=== PATIENT | female | born 1955 | race Caucasian/White ===

== ENCOUNTER 2017-07-13 11:05 | Inpatient (IN) ==
--- NOTE | 2017-07-12 21:15 | Discharge Summary ---
<Clarissa Reilly - Last Filed: 07/13/17 09:58> Date of Encounter: 07/13/17 - Discharge Diagnosis (1) Arthritis of knee, left Priority: Primary Status: Acute (2) Status post total knee replacement, left Priority: Primary Status: Acute (3) DMII (diabetes mellitus, type 2) Priority: Secondary Status: Chronic Qualifiers: Diabetes mellitus complication status: without complication Diabetes mellitus alf insulin use: unspecified alf insulin use status Qualified Code(s): E11.9 - Type 2 diabetes mellitus without complications (4) Obesity Priority: Secondary Status: Chronic Qualifiers: Obesity type: due to excess calories Obesity classification: unspecified obesity classification Serious obesity comorbidity presence: without serious comorbidity Qualified Code(s): E66.09 - Other obesity due to excess calories - Discharge Medications Home Medications: Aspirin Enteric Coated [Aspirin EC] 325 mg PO DAILY #21 tablet. 07/12/17 [Rx] OxyCODONE Immed Rel [Roxicodone 5 MG] 5 mg PO Q6HR PRN 7 Days #28 tablet [Rx] Glimepiride [Amaryl] 4 mg PO DAILY 07/13/17 [History] Insulin ASPART [Novolog Flexpen] 10 unit SQ DAILY 07/13/17 [History] Insulin Glargine,Hum.rec.anlog [Lantus Solostar] 80 unit SQ DAILY 07/13/17 [ History] Metformin HCl [Glucophage] 1,000 mg PO BID 07/13/17 [History] Oxybutynin [Ditropan] 5 mg PO BID 07/13/17 [History] Simvastatin [Zocor] 40 mg PO DAILY 07/13/17 [History] Allergies/Adverse Reactions: 3 Allergy/AdvReac Type Severity Reaction Status Date / Time No Known Allergies Allergy Verified 07/13/17 11:29 Primary care physician: Juwan Brewster MD - Patient Status Disposition: Transfer Inpatient Rehab Fac Condition: Good - Discharge Instructions Follow Up With: Juwan Brewster MD [Primary Care Provider] - Aidan Messina MD [Partnered Physician] - 08/12/17 5:05 pm Clarissa Reilly PAC [Physician Talent Management Specialist] - 07/23/17 8:45 am (Also, appointment 07/31/17 @ 9:00 AM ) - Hospital Course Hospital course: Ms. Farias is a 62 year old female - Time Spent with Patient Total time spent providing and/or coordinating discharge services: <Aidan Messina Hugo - Last Filed: 07/15/17 08:13> Date of Encounter: 07/15/17 Time of Encounter: 08:12 - Discharge Diagnosis (1) Morbid obesity with BMI of 40.0-44.9, adult Priority: Secondary Status: Chronic (2) Arthritis of knee, left Priority: Primary Status: Chronic (3) Status post total knee replacement, left Priority: Primary Status: Acute (4) DMII (diabetes mellitus, type 2) Priority: Secondary Status: Chronic Qualifiers: Diabetes mellitus complication status: without complication Diabetes mellitus alf insulin use: unspecified ocean transportation intermediary insulin use status Qualified Code(s): E11.9 - Type 2 diabetes mellitus without complications (5) Acute blood loss anemia Priority: Primary Status: Acute Primary care physician: Juwan Brewster MD - Patient Status Functional capacity at discharge: uses cane/walker Overall status at discharge: patient is progressing back to baseline - Hospital Course Hospital course: Ms. Farias is a 62 year old female Status post left total knee replacement. The patient had an uneventful postoperative course. They received antibiotics and physical therapy and were discharged in stable condition. There will follow -up in the office in 2 weeks. - Time Spent with Patient Total time spent providing and/or coordinating discharge services:
[2017-07-13] MEDS ORDERED: CeFAZolin Pre 3,000 MG/100 ML 3,000 MG/100 ML BAG IVPB ONE (11:28)
[2017-07-13] MEDS ORDERED: Lidocaine -MPF 1% 2 ML VIAL ID ONE (11:28)
[2017-07-13] MEDS ORDERED: Plasma-Lyte A (PH 7.4) 1,000 ML IVC SCH (11:30)
--- NOTE | 2017-07-13 11:48 | Anesthesia Evaluation PreOp ---
Date of Encounter: 07/13/17 Time of Encounter: 12:12 - Past History Planned Operation: Left total knee arthroplasty Cardiac History: Hyperlipidemia Pulmonary History: Denies Any Significant HX JAI ALAI PLAYER History: Denies Any Significant HX Other Medical History: Diabetes Type II (insulin dependent), Other (BMI 45) Anesthesia History: No Prior Anesthetic Complications Medications and Allergies Aspirin Enteric Coated [Aspirin EC] 325 mg PO DAILY #21 tablet.dr 07/12/17 [Rx] OxyCODONE Immed Rel [Roxicodone 5 MG] 5 mg PO Q6HR PRN 7 Days #28 tablet [Rx] Glimepiride [Amaryl] 4 mg PO DAILY 07/13/17 [History] Insulin ASPART [Novolog Flexpen] 10 unit SQ DAILY 07/13/17 [History] Insulin Glargine,Hum.rec.anlog [Lantus Solostar] 80 unit SQ DAILY 07/13/17 [ History] Metformin HCl [Glucophage] 1,000 mg PO BID 07/13/17 [History] Oxybutynin [Ditropan] 5 mg PO BID 07/13/17 [History] Simvastatin [Zocor] 40 mg PO DAILY 07/13/17 [History] 3 Allergy/AdvReac Type Severity Reaction Status Date / Time No Known Allergies Allergy Verified 07/13/17 11:29 - Meds/Allergy Pre-op Review Medications Reviewed: Yes Allergies Reviewed: Yes Beta Blockers on Current Med List: No Anesthesia Results - Labs Laboratory Tests 07/08/17 07/08/17 07/08/17 13:06 13:06 13:06 WBC 10.5 Hgb 13.6 Hct 42.8 Plt Count 289 PT 11.1 INR 1.0 APTT 36.1 H Sodium 137 Potassium 4.3 Chloride 106 Carbon Dioxide 20 BUN 18 Creatinine 1.13 H Est GFR ( Amer) 59 L Est GFR (Non-Af Amer) 49 L BUN/Creatinine Ratio 16 Est Mean Plasma Glucose Hemoglobin A1c 07/08/17 13:06 WBC Hgb Hct Plt Count PT INR APTT Sodium Potassium Chloride Carbon Dioxide BUN Creatinine Est GFR ( Amer) Est GFR (Non-Af Amer) BUN/Creatinine Ratio Est Mean Plasma Glucose 154 Hemoglobin A1c 7.0 H - Imaging EKG: report reviewed, image reviewed (SINUS RHYTHM LOW QRS VOLTAGE IN PRECORDIAL LEADS POSSIBLE ANTERIOR MYOCARDIAL INFARCTION, PROBABLY OLD) Anesthesia Exam Last Vital Signs Temp 98.1 F 07/13/17 11:35 Pulse 90 07/13/17 11:35 Resp 18 07/13/17 11:35 BP 150/91 07/13/17 11:35 Pulse Ox 96 07/13/17 11:35 Weight: 130 kg NPO (# of Hours): > 8 hrs - HEENT Pupil (Motor): Pupils equal, EOMI Mallampati: II Teeth: Normal Oral Opening: Greater than 3 - JAI ALAI PLAYER LOC: Oriented JAI ALAI PLAYER Motor: Normal RUE, Normal LUE, Normal RLE, Normal LLE, Normal Face - Cardiac Rhythm: Regular Murmur: None - Pulmonary Breath Sounds: bilateral Clear Respiratory Effort: Symmetrical Anesthesia Assess/Plan ASA Score: 3 Modified Abi Scale for Level of Consciousness: Cooperative, oriented, and tranquil Anesthetic Plan: General (patient is refusing regional at this time) Monitoring Plan: Standard Monitors Recovery Plan: PACU
--- NOTE | 2017-07-13 12:04 | History & Physical Report ---
Date of Encounter: 07/13/17 Time of Encounter: 12:03 24 Hour HP Update - Instructions Instructions: If the History and Physical is less than 30 days old and was completed prior to A.M. admission and or procedure and has NOT been updated on calendar day of procedure please complete this update prior to performing procedure. - Update Patient reports changes in Medical Condition: No Changes in examination, assessment, or condition: No Changes in Medication: No Preop tests/diagnostics Reviewed: Yes Surgery Remains Indicated: Yes Consent for Planned Operative Procedure(s) Verified: Yes - Pre-Operative Checklist Preoperative Checklist Indicated: No Prophylactic Antibiotic Ordered: Yes Is VTE Prophylaxis Indicated?: Yes
--- NOTE | 2017-07-13 12:11 | History & Physical Report ---
Date of Encounter: 07/13/17 Time of Encounter: 12:11 24 Hour HP Update - Instructions Instructions: If the History and Physical is less than 30 days old and was completed prior to A.M. admission and or procedure and has NOT been updated on calendar day of procedure please complete this update prior to performing procedure. - Update Patient reports changes in Medical Condition: No Changes in examination, assessment, or condition: No Changes in Medication: No Preop tests/diagnostics Reviewed: Yes Surgery Remains Indicated: Yes Consent for Planned Operative Procedure(s) Verified: Yes - Pre-Operative Checklist Preoperative Checklist Indicated: No Prophylactic Antibiotic Ordered: Yes Is VTE Prophylaxis Indicated?: Yes
[2017-07-13] MEDS ORDERED: *HR* FentaNYL (PF) 100 MCG/2 ML VIAL ONE (12:31)
[2017-07-13] MEDS ORDERED: *HR* Propofol 200 MG/20 ML VIAL IVP ONE (12:32)
[2017-07-13] MEDS ORDERED: Ketamine *HR* 500 MG/10 ML MDV ONE (12:32)
[2017-07-13] MEDS ORDERED: *HR* Midazolam HCl 2 MG/2 ML VIAL ONE (12:32)
[2017-07-13] MEDS ORDERED: Lidocaine -MPF 2% 2 ML VIAL ONE ×2 (12:34→14:13)
[2017-07-13] MEDS ORDERED: Ethanol\\Acetic Acid\\Na Ace\\Ben 1,000 ML IRRIG.SOLN IR ONE (13:52)
[2017-07-13] MEDS ORDERED: Dexamethasone 4 MG/ML VIAL ONE (14:06)
[2017-07-13] MEDS ORDERED: Ondansetron 4 MG/2 ML VIAL ONE (14:06)
[2017-07-13] MEDS ORDERED: Ketorolac 30 MG/ML VIAL ONE (14:07)
[2017-07-13] MEDS ORDERED: *HR* Magnesium Sulfate 1 GM/2 ML VIAL ONE (14:08)
[2017-07-13] MEDS ORDERED: Acetaminophen IV 1,000 MG/100 ML INFUS..BTL ONE (14:09)
[2017-07-13] MEDS ORDERED: *HR* HYDROmorphone 2 MG/ML SYRINGE ONE (14:16)
[2017-07-13] MEDS ORDERED: *HR* Labetalol 20 MG/4 ML SYRINGE IVP PRN (14:25)
[2017-07-13] MEDS ORDERED: Ondansetron 4 MG/2 ML VIAL IVP PRN (14:25)
[2017-07-13] MEDS ORDERED: *HR* HYDROmorphone (PF) 1 MG/ML SYRINGE IVP PRN (14:25)
--- NOTE | 2017-07-13 14:50 | Orthopedic Operative Note ---
Date of procedure: 07/13/17 Pre-op diagnosis: Left knee arthritis Post-op diagnosis: same Procedure: Procedure: Left Total knee replacement Estimated blood loss: 200 cc Hardware: Metal and polyethylene replacement. Arthrex Femur: 6 Tibia: 5 PS insert: 20 Patella: 40 Exam Under anesthesia: Loss full tension 15 degrees flexion to 95 degrees Procedural Notes: Grade 4 arthritic changes all 3 compartments. Operative procedure: The patient was brought to the operating room and placed on the operating room table. After general anesthesia was administered the operative knee was examined. Findings were noted in the exam under anesthesia. The operative extremity was prepped and draped in sterile surgical fashion. The patient received IV antibiotics prior to skin incision. A standard midline incision was made centered over the patella. The incision was made through the skin and subcutaneous tissue. A medial parapatellar tendon approach was performed. Care was taken to preserve tissue along the medial aspect of the patella. And to protect the patella tendon. The deep MCL was released off the medial tibia. The infra patella fat pad was excised. Knee was brought into flexion. Patient noted to have grade 4 arthritic changes all 3 compartments. The entry hole was made for the intramedullary femoral guide. The guide was seated in 6 degrees of valgus. Anterior cut was made followed by the distal cut. The ACL the PCL the medial and the lateral menisci were excised. The tibia was subluxed forward. The entry hole was made for the intramedullary tibial guide. Guide was seated to resect 2 mm off the more abnormal side. The knee was brought into flexion the distal femur was sized to a 6. The femoral guide was seated, the anterior cut was made followed by the posterior condylar cut, followed by the chamfer cuts. The finishing guide was seated the box cut was made and the lug holes were drilled. The tibia was sized a 5, the tibial tray was seated and prepared with the large drill followed by the fin cutter. Trial reduction revealed full extension no varus valgus instability with the appropriate 20 PS Anais. The patella was everted and cut was made at the level of the insertion of the quadriceps and patella tendon. The patella was sized to a 40 the guide was seated and the lug holes are drilled. Trial reduction revealed excellent patella tracking. All trial components were removed all bony surfaces were irrigated. The tibia was cemented first followed by the femur. The 20 PS Anais was seated and the knee was brought into full extension. The patella was cemented and held in place with the patellar holding clamp. After the cement had hardened, the knee sat for 2 minutes with a Betadine saline solution. The knee was then irrigated out with 2 L of pulse irrigation. The knee was closed by the PA. The extensor mechanism was closed with #2 FiberWire suture and #2 PDS suture. The subcutaneous tissue was then irrigated and closed deep with #1 PDS suture superficially with 0 PDS suture and skin was closed with skin alfred. The patient was then placed in a sterile dressing and a postoperative brace extubated and transferred to recovery room in stable condition. Anesthesia: GETA Surgeon: Aidan Messina Condition: stable Disposition: PACU
--- NOTE | 2017-07-13 15:54 | Anesthesia Evaluation Post Op ---
Date of Encounter: 07/13/17 Time of Encounter: 15:54 - Vital Signs Vital Signs: Last Vital Signs Temp 97.0 F L 07/13/17 15:29 Pulse 74 07/13/17 15:39 Resp 18 07/13/17 15:39 BP 120/68 07/13/17 15:39 Pulse Ox 93 07/13/17 15:39 - Lungs Lungs: Clear Ascult./Percussion - Airway Airway: Non-obstructed - Cardiovascular Regular Rate - Mental Status Mental Status: Alert & Oriented, Answers Appropriately - Pain Pain Scale: 4 - Nausea Vomiting Nausea Vomiting: Not Present - Hydration Hydration: NPO - Discharge PostOp Status: Transfer Patient to floor
[2017-07-13] MEDS ORDERED: D5% in Water 1,000 ML IVC PRN (16:04)
[2017-07-13] MEDS ORDERED: Temazepam 15 MG CAPSULE PO PRN (16:04)
[2017-07-13] MEDS ORDERED: Naloxone 0.4 MG/ML INJ IVP PRN (16:04)
[2017-07-13] MEDS ORDERED: *HR* OxyCODONE Immed Rel 5 MG TABLET PO PRN (16:04)
[2017-07-13] MEDS ORDERED: Sennosides 8.6 MG TABLET PO PRN (16:04)
[2017-07-13] MEDS ORDERED: *HR* Dextrose 50 % in Water (Syg) 50 ML SYRINGE IVP PRN (16:04)
[2017-07-13] MEDS ORDERED: ceFAZolin 3,000 MG in D5% in Water 100 ML IVPB SCH (16:04)
[2017-07-13] MEDS ORDERED: MOM Conc 10 ML UD.LIQ PO PRN (16:04)
[2017-07-13] MEDS ORDERED: Dextrose Gel 15 GM PO PRN ×2 (16:04)
[2017-07-13] MEDS ORDERED: Ringers Solution, Lactated 1,000 ML IVC SCH (16:04)
--- NOTE | 2017-07-13 16:14 | Physician Discharge Referral ---
ExtendedCare Referral Info Transfer To: [facility] Provider in Charge: Provider in Charge after Transfer: PCP Institutional Level of Care: Skilled - Diagnosis (1) Arthritis of knee, left Priority: Primary Status: Chronic (2) Status post total knee replacement, left Priority: Primary Status: Acute (3) DMII (diabetes mellitus, type 2) Priority: Secondary Status: Chronic (4) Obesity Priority: Secondary Status: Chronic Expected Duration of Placement: < 30 days Prognosis: Good Aware of Diagnosis: Patient Aware of Prognosis: Patient - Transfer Medications Home Medications: Aspirin Enteric Coated [Aspirin EC] 325 mg PO DAILY #21 tablet.dr 07/12/17 [Rx] OxyCODONE Immed Rel [Roxicodone 5 MG] 5 mg PO Q6HR PRN 7 Days #28 tablet [Rx] Glimepiride [Amaryl] 4 mg PO DAILY 07/13/17 [History] Insulin ASPART [Novolog Flexpen] 10 unit SQ DAILY 07/13/17 [History] Insulin Glargine,Hum.rec.anlog [Lantus Solostar] 80 unit SQ DAILY 07/13/17 [ History] Metformin HCl [Glucophage] 1,000 mg PO BID 07/13/17 [History] Oxybutynin [Ditropan] 5 mg PO BID 07/13/17 [History] Simvastatin [Zocor] 40 mg PO DAILY 07/13/17 [History] Allergies/Adverse Reactions: 3 Allergy/AdvReac Type Severity Reaction Status Date / Time No Known Allergies Allergy Verified 07/13/17 11:29 - Respiratory Orders None Smoking Cessation: Smoking cessation has been advised. For more information, call the [place] Tobacco Quit Line at 1-195-QIBZ-NOW. - Ancillary Orders May use pressure relief devices daily prn, May go on RANI w/family/respon democrat w /meds at nurse discretion PRN, May consult with Dentist, Radiographer Mammographer, Advisor Advocate Angel Co Founder PRN - Mobility Orders Chair, Ambulate - Rehabiliation Orders Rehab Potential: Good Rehab Orders: ROM Exercises, Evaluation for Physical Therapy, Evaluation for Occupational Therapy Other: PT/OT. WBAT to affected extremity. Follow Total Knee Precautions x 6 weeks. Stay in brace at night only. Plan to discontinue brace after first post- operative appointment. ICE and elevate extremity frequently throughout the day. Encourage ambulation exercises. - Treatments Skin tear care topically daily PRN per policy List/Other: Opsite placed. Keep dressing intact until first follow up appointment. If > 50% saturated,notify offfice, remove dressing and place appropriate dressing back in place. Dressing is water resistant, not water-proof. OK to shower, but do not get dressing wet. Riley in place, to be removed at POD#14-16. CERTIFICATION: I certify that the transfer of the above named patient to an Extended Care Facility is necessary for the continuing treatment of the diagnosis listed. The above information is true and accurate reflection of patient's current condition. Confidential - Redisclosure prohibited without a patient's written consent.
[2017-07-13 16:28] LABS: Hematocrit 37.4 % (35.3-44.9)
[2017-07-13 16:29] LABS: Hemoglobin 11.8 g/dL (11.5-15.4)
[2017-07-13] MEDS: Insulin LISPRO 300 UNITS/3 ML VIAL SQ SCH ×2 (16:33→20:48)
[2017-07-13] MEDS: *HR* Enoxaparin 30 MG/0.3 ML SYRINGE SQ SCH (17:30)
[2017-07-13] MEDS: Ondansetron 4 MG/2 ML VIAL IVP PRN (17:31)
[2017-07-13] MEDS ORDERED: Acetaminophen IV 1,000 MG/100 ML INFUS..BTL IVPB PRN (17:36)
[2017-07-13] MEDS ORDERED: *HR* Enoxaparin 30 MG/0.3 ML SYRINGE SQ SCH (18:00)
[2017-07-13] MEDS: *HR* Metformin 500 MG TABLET PO SCH (20:48)
[2017-07-14] MEDS: ceFAZolin 3,000 MG in D5% in Water 100 ML IVPB SCH ×2 (00:02→07:50)
[2017-07-14] MEDS: *HR* OxyCODONE Immed Rel 5 MG TABLET PO PRN ×5 (03:33→21:46)
[2017-07-14] MEDS: *HR* Enoxaparin 30 MG/0.3 ML SYRINGE SQ SCH ×2 (05:35→17:28)
[2017-07-14] MEDS: *HR* HYDROmorphone (PF) 1 MG/ML SYRINGE IVP PRN ×2 (05:55→08:46)
--- NOTE | 2017-07-14 06:37 | Orthopedics Progress Note ---
Date of Encounter: 07/14/17 Time of Encounter: 06:37 - Assessment and Plan (1) Morbid obesity with BMI of 40.0-44.9, adult Current Visit: Yes Status: Chronic (2) Arthritis of knee, left Current Visit: No Status: Chronic (3) Status post total knee replacement, left Current Visit: No Status: Acute (4) DMII (diabetes mellitus, type 2) Current Visit: No Status: Chronic Qualifiers: Diabetes mellitus complication status: without complication Diabetes mellitus ocean transportation intermediary insulin use: unspecified ocean transportation intermediary insulin use status Qualified Code(s): E11.9 - Type 2 diabetes mellitus without complications Subjective Interval history: Patient was seen this morning doing well without complaints. Afebrile vital signs stable. Operative extremity: Neurovascularly intact Dressing clean dry and intact Calves nontender Assessment and plan: Continue with postoperative care Hematocrit 37 Objective Vital signs: Vital Signs Temp Pulse Resp BP Pulse Ox 07/14/17 03:54 97.6 F 89 16 130/81 99 07/13/17 23:07 97.5 F L 98 16 139/83 100 07/13/17 19:25 97.7 F 78 18 131/69 99 07/13/17 18:57 97.8 F 74 16 139/81 96 07/13/17 18:47 98.1 F 80 15 132/78 100 07/13/17 18:09 98.0 F 73 16 146/78 96 07/13/17 17:21 97.7 F 80 18 136/83 97 07/13/17 16:45 98.3 F 79 20 131/74 95 07/13/17 16:10 97.7 F 73 22 137/82 90 07/13/17 16:06 91 07/13/17 15:59 98.2 F 83 17 125/68 93 07/13/17 15:49 75 15 120/70 94 07/13/17 15:39 74 18 120/68 93 07/13/17 15:29 97.0 F L 72 16 113/48 96 07/13/17 11:35 98.1 F 90 18 150/91 96 Intake and Output 07/13/17 07/13/17 07/14/17 15:59 23:59 07:59 Intake Total 100 / 100 900 / 900 100 / 100 Output Total 200 / 200 0 / 0 600 / 600 Balance -100 / -100 900 / 900 -500 / -500 Intake: IV Fluids 100 / 100 100 / 100 Ancef Premix 3,000 MG/100 ML 3, 100 / 100 000 mg In 100 ml @ 200 mls/hr IVPB PREOP ONE Rx#:[id number] Ancef 3,000 MG In Dextrose 5% 100 / 100 100 ML @ 200 mls/hr IVPB Q8HR SMITH Rx#:[id number] Oral 900 / 900 Output: Urine 0 / 0 600 / 600 Estimated Blood Loss 200 / 200 Other: Weight 129.727 kg 130.7 kg Blood Glucose* 119 271 Patient Weight 07/14/17 23:59 Weight 130.7 kg - Labs CBC & BMP: 07/13/17 15:39 Labs: Abnormal lab results POC Glucose 271 (58-89) H 07/13/17 20:19 - VTE Documentation of Mechanical Device: Venous foot pump, device Consult Discharge Plan - Plan Referrals: Juwan Brewster MD [Primary Care Provider] - Aidan Messina MD [Partnered Physician] - 08/12/17 5:05 pm Clarissa Reilly PAC [Physician Multimedia Developer] - 07/23/17 8:45 am (Also, appointment 07/31/17 @ 9:00 AM )
[2017-07-14 07:02] LABS: Hematocrit 32.9 % (35.3-44.9); Hemoglobin 10.7 g/dL (11.5-15.4)
[2017-07-14 07:19] LABS: Calcium 8.8 mg/dL (8.6-10.8); Potassium 5.4 mEq/L (3.5-4.5)
[2017-07-14] MEDS: *HR* Metformin 500 MG TABLET PO SCH ×2 (07:41→21:40)
[2017-07-14] MEDS: *HR* Glimepiride 4 MG TABLET PO SCH (07:41)
[2017-07-14] MEDS: Insulin LISPRO 300 UNITS/3 ML VIAL SQ SCH ×5 (07:42→21:41)
[2017-07-14] MEDS: Insulin DETEMIR 100 UNIT/ML X5UNITS SQ SCH (09:03)
[2017-07-14] MEDS: Ondansetron 4 MG/2 ML VIAL IVP PRN (09:14)
[2017-07-15] MEDS: *HR* Enoxaparin 30 MG/0.3 ML SYRINGE SQ SCH (06:24)
[2017-07-15 07:27] VITALS: BP 140/76
[2017-07-15 07:29] LABS: Hematocrit 30.3 % (35.3-44.9); Hemoglobin 9.6 g/dL (11.5-15.4)
[2017-07-15] MEDS: Insulin LISPRO 300 UNITS/3 ML VIAL SQ SCH ×2 (08:13)
[2017-07-15] MEDS: Insulin DETEMIR 100 UNIT/ML X5UNITS SQ SCH (08:13)
[2017-07-15] MEDS: *HR* OxyCODONE Immed Rel 5 MG TABLET PO PRN (08:14)
[2017-07-15] MEDS: *HR* Metformin 500 MG TABLET PO SCH (08:14)
[2017-07-15] MEDS: *HR* Glimepiride 4 MG TABLET PO SCH (08:14)
--- NOTE | 2017-07-15 08:14 | Orthopedics Progress Note ---
Date of Encounter: 07/15/17 Time of Encounter: 08:13 - Assessment and Plan (1) Morbid obesity with BMI of 40.0-44.9, adult Current Visit: Yes Status: Chronic (2) Arthritis of knee, left Current Visit: No Status: Chronic (3) Status post total knee replacement, left Current Visit: No Status: Acute (4) DMII (diabetes mellitus, type 2) Current Visit: No Status: Chronic Qualifiers: Diabetes mellitus complication status: without complication Diabetes mellitus director long term care insulin use: unspecified director long term care insulin use status Qualified Code(s): E11.9 - Type 2 diabetes mellitus without complications (5) Acute blood loss anemia Current Visit: Yes Status: Acute Subjective Interval history: Patient was seen this morning doing well without complaints. Afebrile vital signs stable. Operative extremity: Neurovascularly intact Dressing clean dry and intact Calves nontender Assessment and plan: Continue with postoperative care Hematocrit 30 discharged today Objective Vital signs: Vital Signs Temp Pulse Resp BP Pulse Ox 07/15/17 07:24 98.0 F 89 15 140/76 98 07/15/17 04:03 98.0 F 62 18 131/77 96 07/14/17 23:51 98.6 F 94 18 121/80 100 07/14/17 19:10 98.4 F 101 18 133/80 93 07/14/17 15:13 97.5 F L 88 15 152/76 94 07/14/17 11:21 97.9 F 79 15 124/71 96 07/14/17 08:45 84 17 160/83 Intake and Output 07/14/17 07/15/17 07/15/17 23:59 07:59 15:59 Output Total 100 / 100 350 / 350 Balance -100 / -100 -350 / -350 Output: Urine 100 / 100 350 / 350 Other: # Voids 1 Weight 129.8 kg Blood Glucose* 205 228 Patient Weight 07/15/17 23:59 Weight 129.8 kg - Labs CBC & BMP: 07/15/17 06:59 07/15/17 06:59 Labs: Abnormal lab results Hgb 9.6 g/dL (11.5-15.4) L 07/15/17 06:59 Hct 30.3 % (35.3-44.9) L 07/15/17 06:59 Sodium 128 mEq/L (136-145) L 07/15/17 06:59 Potassium 5.0 mEq/L (3.5-4.5) H 07/15/17 06:59 BUN 35 mg/dL (7-20) H 07/15/17 06:59 Creatinine 1.45 mg/dL (0.57-1.11) H 07/15/17 06:59 Est GFR ( Amer) 44 (> 60) L 07/15/17 06:59 Est GFR (Non-Af Amer) 37 (> 60) L 07/15/17 06:59 Glucose 205 mg/dL (70-99) H 07/15/17 06:59 POC Glucose 228 (58-89) H 07/15/17 07:26 - VTE Documentation of Mechanical Device: Venous foot pump, device Consult Discharge Plan - Plan Referrals: Juawn Brewster MD [Primary Care Provider] - Aidan Messina MD [Partnered Physician] - 08/12/17 5:05 pm Clarissa Reilly, PAC [Physician Health Club Manager] - 07/23/17 8:45 am (Also, appointment 07/31/17 @ 9:00 AM )
== END 2017-07-15 11:04 | DRG 470 ==
LOC: SAMDAY 11:05 → 3NENU 16:05
PROVIDERS: ADMIT Orthopaedic Surgery; ATTEND Orthopaedic Surgery

== ENCOUNTER 2021-03-02 22:01 | Inpatient (IN) ==
[2021-03-03] MEDS ORDERED: Naloxone 0.4 MG/ML INJ IVP PRN (06:01)
[2021-03-03] MEDS ORDERED: Ondansetron 4 MG/2 ML VIAL IVP PRN (06:01)
[2021-03-03] MEDS ORDERED: Ketorolac 15 MG/ML VIAL IVP PRN (06:01)
[2021-03-03] MEDS ORDERED: D5% in Water 1,000 ML IVC PRN (06:18)
[2021-03-03] MEDS ORDERED: *HR* Dextrose 50 % in Water (Vial) 50 ML VIAL IVP PRN (06:18)
[2021-03-03] MEDS ORDERED: Dextrose Gel 15 GM/37.5 ML TUBE PO PRN ×2 (06:18)
[2021-03-03 06:49] LABS: Basophils % 0.2 %; Hemoglobin 11.2 g/dL (11.5-15.4); Immature Granulocytes % 0.5 % (0-4); Lymphocytes # 0.8 K/mcL (0.6-4.6); Lymphocytes % 4.5 %; Mean Corpuscular HGB Conc 31.1 g/dL (31.6-35.5); Mean Corpuscular Hemoglobin 28.1 pg (28.0-33.3); Mean Corpuscular Volume 90.5 fL (83.0-100.0); Mean Platelet Volume 10.1 fL (9.4-12.4); Monocytes # 0.7 K/mcL (0.0-1.3); Monocytes % 4.1 %; Platelet Count 249 K/mcL (140-400); Red Blood Count 3.98 M/mcL (3.82-4.97); Red Cell Distribution Width 14.4 % (11.5-14.5); Segmented Neutrophils % 90.7 %; White Blood Count 17.6 K/mcL (4.3-11.1)
[2021-03-03 06:56] LABS: INR 1.1
[2021-03-03 07:09] LABS: BUN/Creatinine Ratio 17 (6-26); Blood Urea Nitrogen 18 mg/dL (8-23); Calcium 9.1 mg/dL (8.6-10.3); Carbon Dioxide 21 mEq/L (23-29); Chloride 100 mEq/L (98-107); Creatine Kinase 60 Units/L (30-223); Glucose 400 mg/dL (70-105); Osmolality,Calculated 289 (280-300); Potassium 4.7 mEq/L (3.5-5.1); Sodium 130 mEq/L (136-145); eGFR For African Americans > 60 (> 60); eGFR For Non-African Americans 52 (> 60)
[2021-03-03] MEDS: Insulin DETEMIR 100 UNIT/ML X5UNITS SUBQ SCH ×2 (10:37→19:41)
[2021-03-03] MEDS ORDERED: cefTRIAXone 1,000 MG in 0.9 % Sodium Chloride Mini Bag 100 ML IVPB ONE (11:57)
[2021-03-03] MEDS ORDERED: Insulin LISPRO 300 UNITS/3 ML VIAL SUBQ SCH ×2 (12:00)
[2021-03-03] MEDS: Insulin LISPRO 300 UNITS/3 ML VIAL SUBQ SCH (17:06)
[2021-03-03] MEDS: Nystatin POWDER 30 GM BOTTLE TP SCH (21:40)
[2021-03-03 22:18] LABS: Influenza A PCR Negative (Negative); Influenza B PCR Negative (Negative); Resp. Syncytial Virus PCR Negative (Negative)
[2021-03-03 22:20] LABS: SARS-CoV-2 by PCR (In House) Negative (Negative)
[2021-03-04 00:10] LABS: Bilirubin,Urine Negative (Negative); Blood,Urine Moderate (Negative); Clarity,Urine Ex.Turbid (Clear); Color,Urine Yellow (Yellow); Glucose,Urine (UA) 70 mg/dL (Normal); Hyaline Casts,Urine Few per lpf (None Seen); Ketones,Urine Trace mg/dL (Negative); Leukocyte Esterase,Urine Small (Negative); Mucus,Urine Moderate per lpf (None-Few); Nitrite,Urine Negative (Negative); PH,Urine 5.5 pH Units (5.0-8.0); Protein,Urine 100 mg/dL (Neg-Trace); RBC,Urine 50-100 per hpf (0-3); Specific Gravity,Urine > 1.030 (1.010-1.025); Squamous Epithelial Cell,Urine Few per hpf (None-Few); Urobilinogen,Urine Normal (Normal); WBC,Urine 30-50 per hpf (0-3)
[2021-03-04 05:28] LABS: Basophils % 0.4 %; Eosinophils # 0.1 K/mcL (0.0-0.6); Eosinophils % 0.5 %; Hematocrit 31.3 % (35.3-44.9); Immature Granulocytes % 0.5 % (0-4); Lymphocytes # 2.1 K/mcL (0.6-4.6); Lymphocytes % 19.3 %; Mean Corpuscular HGB Conc 31.9 g/dL (31.6-35.5); Mean Corpuscular Hemoglobin 28.9 pg (28.0-33.3); Mean Corpuscular Volume 90.5 fL (83.0-100.0); Mean Platelet Volume 10.3 fL (9.4-12.4); Monocytes # 1.1 K/mcL (0.0-1.3); Monocytes % 10.5 %; Neutrophils # 7.5 K/mcL (1.6-8.9); Platelet Count 210 K/mcL (140-400); Red Blood Count 3.46 M/mcL (3.82-4.97); Red Cell Distribution Width 14.9 % (11.5-14.5); Segmented Neutrophils % 68.8 %; White Blood Count 10.9 K/mcL (4.3-11.1)
[2021-03-04 05:56] LABS: Calcium 8.9 mg/dL (8.6-10.3); Potassium 4.4 mEq/L (3.5-5.1)
[2021-03-04] MEDS: Insulin LISPRO 300 UNITS/3 ML VIAL SUBQ SCH ×5 (08:44→16:16)
[2021-03-04] MEDS: Insulin DETEMIR 100 UNIT/ML X5UNITS SUBQ SCH ×2 (08:59→20:31)
[2021-03-04] MEDS: Nystatin POWDER 30 GM BOTTLE TP SCH ×2 (09:00→20:31)
[2021-03-04] MEDS ORDERED: Ringers Solution, Lactated 1,000 ML IVC SCH (10:45)
[2021-03-04] MEDS: *HR* Enoxaparin 40 MG/0.4 ML SYRINGE SQ SCH (10:56)
[2021-03-04] MEDS: cefTRIAXone 1,000 MG in Water for inj. (sterile) 10 ML IVP SCH (10:56)
[2021-03-04] MEDS ORDERED: Clindamycin 900 MG/50 ML 900 MG/50 ML IV.SOLN IVPB ONE (13:21)
[2021-03-05] MEDS: *HR* Enoxaparin 40 MG/0.4 ML SYRINGE SQ SCH (04:33)
[2021-03-05 05:05] LABS: Basophils # 0.1 K/mcL (0.0-0.2); Basophils % 0.7 %; Eosinophils # 0.1 K/mcL (0.0-0.6); Eosinophils % 0.9 %; Hematocrit 28.5 % (35.3-44.9); Immature Granulocytes % 0.5 % (0-4); Lymphocytes # 1.9 K/mcL (0.6-4.6); Lymphocytes % 17.4 %; Mean Corpuscular HGB Conc 31.6 g/dL (31.6-35.5); Mean Corpuscular Hemoglobin 28.5 pg (28.0-33.3); Mean Corpuscular Volume 90.2 fL (83.0-100.0); Mean Platelet Volume 10.3 fL (9.4-12.4); Monocytes # 1.2 K/mcL (0.0-1.3); Monocytes % 10.9 %; Neutrophils # 7.7 K/mcL (1.6-8.9); Platelet Count 194 K/mcL (140-400); Red Blood Count 3.16 M/mcL (3.82-4.97); Red Cell Distribution Width 14.6 % (11.5-14.5); Segmented Neutrophils % 69.6 %; White Blood Count 11.1 K/mcL (4.3-11.1)
[2021-03-05 05:22] LABS: BUN/Creatinine Ratio 23 (6-26); Blood Urea Nitrogen 23 mg/dL (8-23); Calcium 8.7 mg/dL (8.6-10.3); Carbon Dioxide 25 mEq/L (23-29); Chloride 101 mEq/L (98-107); Glucose 187 mg/dL (70-105); Osmolality,Calculated 283 (280-300); Potassium 4.2 mEq/L (3.5-5.1); Sodium 132 mEq/L (136-145); eGFR For African Americans > 60 (> 60); eGFR For Non-African Americans 56 (> 60)
[2021-03-05 05:46] LABS: Estimated Average Glucose 166 mg/dl; Hemoglobin A1C 7.4 %
[2021-03-05] MEDS: Insulin LISPRO 300 UNITS/3 ML VIAL SUBQ SCH ×6 (08:13→19:23)
[2021-03-05] MEDS: Aspirin Enteric Coated 81 MG Tablet PO SCH (08:22)
[2021-03-05] MEDS: cefTRIAXone 1,000 MG in Water for inj. (sterile) 10 ML IVP SCH (08:30)
[2021-03-05] MEDS: Insulin DETEMIR 100 UNIT/ML X5UNITS SUBQ SCH ×2 (08:30→22:02)
[2021-03-05] MEDS: Nystatin POWDER 30 GM BOTTLE TP SCH ×2 (08:32→22:02)
[2021-03-05] MEDS ORDERED: *HR* Enoxaparin 40 MG/0.4 ML SYRINGE SQ SCH (10:42)
[2021-03-05] MEDS ORDERED: Ropivacaine/PF 0.5% 30 ML VIAL ONE (15:59)
[2021-03-05] MEDS ORDERED: *HR* Midazolam HCl 2 MG/2 ML VIAL ONE (16:00)
[2021-03-05] MEDS ORDERED: *HR* FentaNYL (PF) 100 MCG/2 ML VIAL ONE (16:00)
[2021-03-05] MEDS ORDERED: *HR* Propofol 200 MG/20 ML VIAL IVP ONE (16:01)
[2021-03-05] MEDS ORDERED: *HR* Succinylcholine 200 MG/10 ML VIAL IVP ONE (16:03)
[2021-03-05] MEDS ORDERED: Lidocaine -MPF 2% 2 ML VIAL ONE ×2 (16:03→16:21)
[2021-03-05] MEDS ORDERED: Clindamycin 900 MG/50 ML 900 MG/50 ML IV.SOLN IVPB ONE ×2 (17:11→22:00)
[2021-03-05] MEDS ORDERED: *HR* Rocuronium Bromide 50 MG/5 ML VIAL ONE (17:22)
[2021-03-05] MEDS ORDERED: Ondansetron 4 MG/2 ML VIAL ONE (17:51)
[2021-03-05] MEDS ORDERED: *HR* Phenylephrine 10 MG/ML VIAL ONE (18:06)
[2021-03-05] MEDS ORDERED: Neostigmine Methylsulfate 3 MG/3 ML SYRINGE ONE (19:47)
[2021-03-05] MEDS ORDERED: *HR* HYDROMORPHONE 2 MG/ML VIAL ONE (19:58)
[2021-03-05] MEDS ORDERED: Ondansetron 4 MG/2 ML VIAL IVP PRN ×2 (20:10→20:12)
[2021-03-05] MEDS ORDERED: *HR* HYDROmorphone PF 0.5 MG/0.5 ML SYRINGE IVP PRN (20:10)
[2021-03-05] MEDS ORDERED: *HR* OxyCODONE Immed Rel 5 MG TABLET PO PRN (20:12)
[2021-03-05] MEDS ORDERED: 0.9 % Sodium Chloride 1,000 ML IVC SCH (20:15)
[2021-03-05 22:37] LABS: ABG Base Excess 1 mEq/L (-2 to 3); ABG HCO3 27 mEq/L (21-27); ABG Oxygen Saturation 91 % (95-98); ABG PCO2 48 mmHg (35-45); ABG PH 7.35 pH Units (7.32-7.45); ABG PO2 65 mmHg (85-104); ABG TCO2 28 mEq/L (20-26)
[2021-03-06] MEDS: Clindamycin 900 MG/50 ML 900 MG/50 ML IV.SOLN IVPB SCH ×2 (02:09→08:49)
[2021-03-06 02:47] LABS: BUN/Creatinine Ratio 21 (6-26); Blood Urea Nitrogen 22 mg/dL (8-23); Calcium 8.4 mg/dL (8.6-10.3); Carbon Dioxide 24 mEq/L (23-29); Chloride 101 mEq/L (98-107); Glucose 329 mg/dL (70-105); Osmolality,Calculated 290 (280-300); Sodium 132 mEq/L (136-145); eGFR For African Americans > 60 (> 60); eGFR For Non-African Americans 54 (> 60)
[2021-03-06 02:57] LABS: Basophils % 0.2 %; Hematocrit 27.8 % (35.3-44.9); Hemoglobin 8.9 g/dL (11.5-15.4); Immature Granulocytes % 0.8 % (0-4); Lymphocytes # 0.6 K/mcL (0.6-4.6); Lymphocytes % 5.2 %; Mean Corpuscular Hemoglobin 29.2 pg (28.0-33.3); Mean Corpuscular Volume 91.1 fL (83.0-100.0); Mean Platelet Volume 10.5 fL (9.4-12.4); Monocytes # 0.5 K/mcL (0.0-1.3); Monocytes % 4.2 %; Neutrophils # 10.5 K/mcL (1.6-8.9); Platelet Count 192 K/mcL (140-400); Red Blood Count 3.05 M/mcL (3.82-4.97); Red Cell Distribution Width 14.6 % (11.5-14.5); Segmented Neutrophils % 89.6 %; White Blood Count 11.7 K/mcL (4.3-11.1)
[2021-03-06] MEDS: *HR* Enoxaparin 30 MG/0.3 ML SYRINGE SQ SCH ×2 (05:07→18:29)
[2021-03-06] MEDS: Aspirin Enteric Coated 81 MG Tablet PO SCH (08:48)
[2021-03-06] MEDS: cefTRIAXone 1,000 MG in Water for inj. (sterile) 10 ML IVP SCH (08:49)
[2021-03-06] MEDS: Insulin DETEMIR 100 UNIT/ML X5UNITS SUBQ SCH ×2 (08:50→20:24)
[2021-03-06] MEDS: Insulin LISPRO 300 UNITS/3 ML VIAL SUBQ SCH ×6 (08:51→17:58)
[2021-03-06] MEDS ORDERED: Perflutren Lipid Microsphere 1.3 ML in 0.9 % Sodium Chloride 8.7 ML IVP PRN (13:54)
[2021-03-06] MEDS: Nystatin POWDER 30 GM BOTTLE TP SCH (22:51)
[2021-03-07 01:31] LABS: Basophils % 0.1 %; Eosinophils % 0.1 %; Hematocrit 25.7 % (35.3-44.9); Hemoglobin 8.1 g/dL (11.5-15.4); Immature Granulocytes % 0.7 % (0-4); Lymphocytes # 1.8 K/mcL (0.6-4.6); Lymphocytes % 13.1 %; Mean Corpuscular HGB Conc 31.5 g/dL (31.6-35.5); Mean Corpuscular Hemoglobin 28.1 pg (28.0-33.3); Mean Corpuscular Volume 89.2 fL (83.0-100.0); Mean Platelet Volume 10.3 fL (9.4-12.4); Monocytes # 1.6 K/mcL (0.0-1.3); Monocytes % 11.3 %; Neutrophils # 10.5 K/mcL (1.6-8.9); Platelet Count 239 K/mcL (140-400); Red Blood Count 2.88 M/mcL (3.82-4.97); Red Cell Distribution Width 14.5 % (11.5-14.5); Segmented Neutrophils % 74.7 %
[2021-03-07 01:53] LABS: BUN/Creatinine Ratio 28 (6-26); Blood Urea Nitrogen 30 mg/dL (8-23); Calcium 8.3 mg/dL (8.6-10.3); Carbon Dioxide 26 mEq/L (23-29); Chloride 102 mEq/L (98-107); Glucose 163 mg/dL (70-105); Osmolality,Calculated 288 (280-300); Potassium 3.7 mEq/L (3.5-5.1); Sodium 134 mEq/L (136-145); eGFR For African Americans > 60 (> 60); eGFR For Non-African Americans 52 (> 60)
[2021-03-07] MEDS: *HR* Enoxaparin 30 MG/0.3 ML SYRINGE SQ SCH (05:59)
[2021-03-07] MEDS: cefTRIAXone 1,000 MG in Water for inj. (sterile) 10 ML IVP SCH (09:51)
[2021-03-07] MEDS: Aspirin Enteric Coated 81 MG Tablet PO SCH (09:52)
[2021-03-07] MEDS: Insulin DETEMIR 100 UNIT/ML X5UNITS SUBQ SCH (09:53)
[2021-03-07] MEDS: Insulin LISPRO 300 UNITS/3 ML VIAL SUBQ SCH ×6 (09:54→19:44)
[2021-03-07] MEDS ORDERED: Isovue-370 500 ML BOTTLE IVP ONE (12:00)
[2021-03-07] MEDS ORDERED: *HR* Heparin 5,000 UNIT/ML VIAL IVP PRN ×2 (14:40)
[2021-03-07] MEDS ORDERED: *HR* Heparin 5,000 UNIT/ML VIAL IVP ONE (14:40)
[2021-03-07] MEDS ORDERED: Heparin 25,000UNIT/250ML 1/2NS 25,000 UNIT/250 ML IV.SOLN IVC SCH (14:45)
[2021-03-07 15:23] LABS: Hematocrit 26.1 % (35.3-44.9); Mean Corpuscular HGB Conc 30.7 g/dL (31.6-35.5); Mean Corpuscular Hemoglobin 28.1 pg (28.0-33.3); Mean Corpuscular Volume 91.6 fL (83.0-100.0); Mean Platelet Volume 10.1 fL (9.4-12.4); Platelet Count 240 K/mcL (140-400); Red Blood Count 2.85 M/mcL (3.82-4.97); Red Cell Distribution Width 14.8 % (11.5-14.5); White Blood Count 12.8 K/mcL (4.3-11.1)
[2021-03-07 15:35] LABS: Heparin anti-factor XA UFH 0.14 IU/mL (0.30-0.70)
[2021-03-07 15:36] LABS: INR 1.1
[2021-03-07 20:32] VITALS: BP 152/68
== END 2021-03-07 21:26 | disposition short-term general hospital (02) | DRG 480 ==
LOC: 3NENU → SUATTDRO 03-03 16:57
PROVIDERS: ADMIT Family Medicine; ATTEND General Practice